=== PATIENT | female | born 1970 | race Caucasian/White ===

== ENCOUNTER 2020-07-19 20:27 | Inpatient (IN) ==
--- NOTE | 2020-07-19 22:10 | DR.GENAD ---
HPI Time Seen Time Seen by Provider: 07/19/20 21:59 PCP Primary Care Physician: JEANIE AYALA Complaint/Symptoms Chief Complaint Doctors Comments: flu symptoms x 2 days. Hx of COPD Chief Complaint:: PT AMBULATORY IN ED WITH C/O GENERALIZED PAIN AND MIGRAINE, COUGH AND CHEST PAIN COVID-19 Coronavirus risk:travel/contact w/high risk person: No Has patient experienced Coronavirus symptoms: Yes Coronavirus symptoms experienced: Fever, Coughing and Shortness of Breath Nurses notes reviewed Nurses Notes Review: Yes Source History Provided: Patient Mode of Arrival Mode of Arrival: Ambulatory Timing Onset of Chief Complaint: 07/17/20 Came on: Gradually Duration Duration: Constant How lon Duration: Days Severity Severity: Moderate Modifying Factors Worsens:: exertion, smoking Associated Signs and Symptoms Associated Signs and Symptoms: Headache, cough PMH PMH Past Medical History: No Past Surgical History: Yes Surgical History: Hysterectomy Past Surgical History Comment: SLING AND MESH Family History History of Family Medical Conditions: Yes Family Medical History: [place], Coronary Artery Disease and Hypertension Social History Does patient currently use any type of tobacco product: Yes Have you used tobacco products in the last 12 months: Yes Type of Tobacco Use: Cigarettes Does any household member use tobacco: No Alcohol Use: None Do you use any recreational Drugs:: No Lives With: Spouse Lives Where: Home Travel Risk Coronavirus risk:travel/contact w/high risk person: No Has patient experienced Coronavirus symptoms: Yes Coronavirus symptoms experienced: Fever, Coughing and Shortness of Breath Infectious screening In the last 2 months have you had wt loss of >10#?: NO Have you had fever, night sweats or hemotysis?: No Have you traveled outside the country in the last 6 months?: No Isolation: Droplet ROS Review of Systems Constitutional: Fever and Malaise Eyes: No Symptoms Reported ENTM: Nose Discharge Respiratoy: Non-Productive Cough and Short of Breath Cardiovascular: No Symptoms Reported Gastrointestinal/Abdominal: No Symptoms Reported Genitourinary: No Symptoms Reported Neurological: Headache Musculoskeletal: Muscle Pain Integumentary: No Symptoms Reported Hematologic/Lymphatic: No Symptoms Reported Endocrine: No Symptoms Reported Psychiatric: No Symptoms Reported All Other Systems: Reviewed and Negative PE Vital Signs Vitals: Temperature 99.9 F Pulse Rate [Left Brachial] 129 Pulse Rate 146 Respiratory Rate 22 Blood Pressure [Left Arm] 84/50 Blood Pressure 114/68 O2 Sat by Pulse Oximetry 95 General Limitations: No Limitations General Appearance: Alert and In No Apparent Distress Head Head Exam: Normal Inspection, Atraumatic and Normocephalic Eyes Eye exam: Normal Appearance and EOMI ENT ENT Exam: Normal Exam, Normal Oropharynx and Normal External Ear Exam External Ear Exam: Normal External Inspection Nose Exam: Normal Nose Exam Mouth Exam: Normal Inspection; negative Drooling, Lip Swelling, Tongue Elevation and Tongue Swelling Throat Exam: Normal Inspection Neck Neck Exam: Normal Inspection, Full ROM and Trachea Midline Chest Chest Inspection: Normal Inspection Respiratory Respiratory Exam: Normal Lung Sounds Bilat Respiratory Exam: Bilateral: Wheezing and Lower: Rales Cardiovascular Cardiovascular Exam: Tachycardia Abdominal Exam Abdominal Exam: Normal Inspection Extremities Extremities Exam: Normal Inspection and Full ROM Neurologic Neurological Exam: Alert, Oriented X3, CN II-XII Intact and Normal Gait Skin Skin Exam: Normal Color COURSE Consultation Called: 00:50 ROR Labs Reviewed Result Diagrams: 07/20/20 05:10 07/20/20 05:37 Laboratory: WBC 20.5 X10^3/uL (3.6-10.0) H 07/19/20 22:24 RBC 5.28 X10^6/uL (3.5-5.4) 07/19/20 22:24 Hgb 16.0 g/dL (12.0-16.0) 07/19/20 22:24 Hct 47.0 % (36.0-47.0) 07/19/20 22:24 MCV 89.1 fL (80.0-100.0) 07/19/20 22:24 MCH 30.3 pg (27.0-34.0) 07/19/20 22:24 MCHC 34.0 g/dL (33.0-35.0) 07/19/20 22:24 RDW 13.7 % (11.6-16.5) 07/19/20 22:24 Plt Count 172 X10^3/uL (150.0-450.0) 07/19/20 22:24 Plt Count Comment Adequate (ADEQUATE) 07/19/20 22:24 MPV 9.7 fL (7.4-11.0) 07/19/20 22:24 Neut % (Auto) 93.0 % (42.0-75.0) H 07/19/20 22:24 Lymph % (Auto) 2.9 % (21.0-51.0) L 07/19/20 22:24 [place] % (Auto) 4.0 % (0.0-13.0) 07/19/20 22:24 Eos % (Auto) 0.0 % (0.9-2.9) L 07/19/20 22:24 Baso % (Auto) 0.1 % (0.2-1.0) L 07/19/20 22:24 Neut # (Auto) 19.0 x10^3/uL (2.2-4.8) H 07/19/20 22:24 Lymph # (Auto) 0.6 X10^3/uL (1.3-2.9) L 07/19/20 22:24 [place] # (Auto) 0.8 x10^3/uL (0.3-0.8) 07/19/20 22:24 Eos # (Auto) 0.0 x10^3/uL (0.0-0.2) 07/19/20 22:24 Baso # (Auto) 0.0 X10^3/uL (0.0-0.1) 07/19/20 22:24 Absolute Nucleated RBC 0.0 /100WBC 07/19/20 22:24 Total Counted 100 07/19/20 22:24 Neutrophils % (Manual) 92 % (39-76) H 07/19/20 22:24 Lymphocytes % (Manual) 7 % (13-43) L 07/19/20 22:24 Monocytes % (Manual) 1 % (4-9) L 07/19/20 22:24 Plt Morphology Comment Normal (NORMAL) 07/19/20 22:24 RBC Morphology Normal (NORMAL) 07/19/20 22:24 Sample Site Rbra 07/19/20 22:56 ABG pH 7.500 (7.35-7.45) H 07/19/20 22:56 ABG pCO2 26.0 mmHg (35.0-45.0) L 07/19/20 22:56 ABG pO2 69.0 mmHg (80.0-100.0) L 07/19/20 22:56 ABG HCO3 20.3 mmol/L (22-26) L 07/19/20 22:56 ABG O2 Saturation 95.0 % (90-100) 07/19/20 22:56 ABG Base Excess -1.6 mmol/L (-2.0-2.0) 07/19/20 22:56 Howard Test Na 07/19/20 22:56 A-a Gradient 48.0 mmHg 07/19/20 22:56 FiO2 21.0 07/19/20 22:56 Blood Gas Comments Abraham abg well-mtf 07/19/20 22:56 Sodium 137 mmol/L (136-145) 07/19/20 22:24 Corrected Sodium 138 mmol/L (136-145) 07/19/20 22:24 Potassium 4.1 mmol/L (3.5-5.1) 07/19/20 22:24 Chloride 100 mmol/L (98-107) 07/19/20 22:24 Carbon Dioxide 26.3 mmol/L (21-32) 07/19/20 22:24 BUN 19 mg/dL (7-18) H 07/19/20 22:24 Creatinine 1.77 mg/dL (0.55-1.02) H 07/19/20 22:24 Est GFR (MDRD) Af Amer 39 (>60) L 07/19/20 22:24 Est GFR (MDRD) Non-Af 32 (>60) L 07/19/20 22:24 Glucose 150 mg/dL (65-99) H 07/19/20 22:24 Calcium 9.0 mg/dL (8.5-10.1) 07/19/20 22:24 Corrected Calcium 9.7 mg/dL (8.5-10.1) 07/19/20 22:24 Ferritin 370 ng/mL (8-252) H 07/19/20 22:24 Total Bilirubin 1.10 mg/dL (0.2-1.0) H 07/19/20 22:24 AST 10 Units/L (15-37) L 07/19/20 22:24 ALT 12 Units/L (12-78) 07/19/20 22:24 Alkaline Phosphatase 85 Units/L (46-116) 07/19/20 22:24 Troponin I < 0.04 ng/mL (0-1.5) 07/19/20 22:24 C-Reactive Protein 371.60 mg/L (0-3.0) H 07/19/20 22:24 Total Protein 7.1 g/dL (6.4-8.2) 07/19/20 22:24 Albumin 3.1 g/dL (3.4-5.0) L 07/19/20 22:24 Globulin 4.0 g/dL (2.5-4.5) 07/19/20 22:24 Albumin/Globulin Ratio 0.8 Ratio (1.1-2.1) L 07/19/20 22:24 SARS-CoV-2 (PCR) Negative (NEGATIVE) 07/19/20 23:36 Opioid Opioid Risk Tool Age ([place] box if 16-45): No History of Preadolescent Sexual Abuse: No Total: 0 Total Score Risk Category: Low Risk Copyright: Marco Antonio NEGRO predicting aberrant behaviors Diagnosis Discharge Problem: Pneumonia Qualifiers: Pneumonia type: due to unspecified organism Laterality: bilateral Lung location: lower lobe of lung Qualified Code(s): J18.9 - Pneumonia, unspecified organism
[2020-07-19] MEDS ORDERED: XOPENEX 1.25 MG/3 ML NEBULE NEB ONE ×2 (22:14→22:48)
[2020-07-19 22:29] LABS: BASOPHILS % (AUTO) 0.1 % (0.2-1.0); LYMPHOCYTES # (AUTO) 0.6 X10^3/uL (1.3-2.9); LYMPHOCYTES % (AUTO) 2.9 % (21.0-51.0); MEAN CORPUSCULAR HEMOGLOBIN 30.3 pg (27.0-34.0); MEAN CORPUSCULAR VOLUME 89.1 fL (80.0-100.0); MEAN PLATELET VOLUME 9.7 fL (7.4-11.0); MONOCYTES # (AUTO) 0.8 x10^3/uL (0.3-0.8); PLATELET COUNT 172 X10^3/uL (150.0-450.0); RED BLOOD COUNT 5.28 X10^6/uL (3.5-5.4); RED CELL DISTRIBUTION WIDTH 13.7 % (11.6-16.5); WHITE BLOOD COUNT 20.5 X10^3/uL (3.6-10.0)
[2020-07-19] MEDS ORDERED: NS 1000 ML 1,000 ML ONE (22:37)
[2020-07-19 22:48] LABS: ALANINE AMINOTRANSFERASE 12 Units/L (12-78); ALBUMIN 3.1 g/dL (3.4-5.0); ALKALINE PHOSPHATASE 85 Units/L (46-116); ASPARTATE AMINO TRANSFERASE 10 Units/L (15-37); CARBON DIOXIDE 26.3 mmol/L (21-32); CHLORIDE 100 mmol/L (98-107); COR CA(FOR HYPOALB) 9.7 mg/dL (8.5-10.1); COR NA(FOR HYPERGLY) 138 mmol/L (136-145); CREATININE 1.77 mg/dL (0.55-1.02); SODIUM 137 mmol/L (136-145); TOTAL PROTEIN 7.1 g/dL (6.4-8.2); eGFR NON BLACK RACES 32 (>60)
--- NOTE | 2020-07-19 22:49 | RAD ---
STUDY: CHEST, 1 VIEWCOMPARISON: NoneHISTORY: PT C/O MIGRAINE, COUGH, AND CHEST PAINFINDINGS:Alveolar airspace disease is seen in the right upper lung zone and right lower lung zone. The airspace disease in the right upper lung zone has cystic changes and may be chronic in etiology. Left lower lobe discoid atelectasis is noted. Remaining left lung is clear. Cardiomediastinal contour is normal. No pleural effusion or pneumothorax is seen. Emphysema is suggested.IMPRESSION:1. Alveolar airspace disease in the right upper lung zone appears chronic with findings suggesting honeycombing with fibrosis.2. There is airspace disease in the right lower lung zone. This could represent acute or chronic airspace disease. Please note that there are no prior studies available for comparison to assess the stability and chronicity of these findings. Follow-up may be obtained as clinically indicated.Electronically signed by: Mukund Moreno (Jul 19, 2020 22:47:10)
[2020-07-19 22:59] LABS: PLATELET MORPHOLOGY COMMENT NORMAL (NORMAL)
[2020-07-19 22:59] LABS: ABG BASE EXCESS -1.6 mmol/L (-2.0-2.0); ABG HCO3 20.3 mmol/L (22-26)
[2020-07-19] MEDS ORDERED: NS 1000 ML 1,000 ML IV SCH (23:00)
[2020-07-19 23:28] LABS: TROPONIN I < 0.04 ng/mL (0-1.5)
[2020-07-19 23:33] LABS: BLOOD UREA NITROGEN 19 mg/dL (7-18)
[2020-07-19] MEDS ORDERED: TORADOL 30 MG VIAL IVP ONE (23:39)
[2020-07-19] MEDS ORDERED: TORADOL 30 MG VIAL ONE (23:49)
[2020-07-20] MEDS ORDERED: TUSSIONEX PENNKINETIC SUSP PO PRN (01:27)
[2020-07-20] MEDS ORDERED: NS 1000 ML 1,000 ML IV ONE ×2 (01:50→02:42)
[2020-07-20] MEDS ORDERED: NS 1000 ML 1,000 ML ONE (02:32)
[2020-07-20] MEDS ORDERED: ROCEPHIN 1 GRAM IV PREMIX 1 G/50 ML IV.SOLN. IV ONE (02:44)
[2020-07-20] MEDS: NS 1/2 1000 ML IV 1,000 ML IV SCH ×2 (02:45→05:00)
[2020-07-20] MEDS ORDERED: ROCEPHIN 1 GRAM IV PREMIX 1 G/50 ML IV.SOLN. IV SCH (03:00)
[2020-07-20 03:18] VITALS: BMI 19.4
[2020-07-20] MEDS: VIBRAMYCIN 100 MG in NS 100 ML IV + SPIKE MINIBAG* 100 ML IV SCH ×3 (03:19→20:22)
[2020-07-20] MEDS ORDERED: NS 1/2 1000 ML IV 1,000 ML IV ONE (04:08)
[2020-07-20 06:14] LABS: BASOPHILS % (AUTO) 0.4 % (0.2-1.0); HEMATOCRIT 43.8 % (36.0-47.0); HEMOGLOBIN 14.8 g/dL (12.0-16.0); LYMPHOCYTES # (AUTO) 0.6 X10^3/uL (1.3-2.9); LYMPHOCYTES % (AUTO) 8.5 % (21.0-51.0); MEAN CORPUSCULAR HEMOGLOBIN 30.4 pg (27.0-34.0); MEAN CORPUSCULAR HGB CONC 33.8 g/dL (33.0-35.0); MEAN PLATELET VOLUME 10.6 fL (7.4-11.0); MONOCYTES # (AUTO) 0.4 x10^3/uL (0.3-0.8); MONOCYTES % (AUTO) 5.1 % (0.0-13.0); NEUTROPHILS # (AUTO) 6.2 x10^3/uL (2.2-4.8); PLATELET COUNT 122 X10^3/uL (150.0-450.0); RED BLOOD COUNT 4.86 X10^6/uL (3.5-5.4); RED CELL DISTRIBUTION WIDTH 13.8 % (11.6-16.5); WHITE BLOOD COUNT 7.2 X10^3/uL (3.6-10.0)
[2020-07-20 06:24] LABS: LACTIC ACID 3.3 mmol/L (0.4-2.0)
[2020-07-20 06:31] LABS: ALANINE AMINOTRANSFERASE 9 Units/L (12-78); ALBUMIN 2.3 g/dL (3.4-5.0); ALKALINE PHOSPHATASE 65 Units/L (46-116); ASPARTATE AMINO TRANSFERASE 8 Units/L (15-37); BLOOD UREA NITROGEN 24 mg/dL (7-18); CALCIUM 7.9 mg/dL (8.5-10.1); CHLORIDE 104 mmol/L (98-107); CKMB % 2.6 % (<4); COR CA(FOR HYPOALB) 9.3 mg/dL (8.5-10.1); CREATINE KINASE 39 Units/L (26-192); CREATINE KINASE MB < 1.0 ng/mL (0-4.0); CREATININE 2.22 mg/dL (0.55-1.02); SODIUM 139 mmol/L (136-145); TOTAL PROTEIN 5.6 g/dL (6.4-8.2); TROPONIN I < 0.02 ng/mL (0-1.5); eGFR NON BLACK RACES 25 (>60)
[2020-07-20 06:38] LABS: BAND NEUTROPHILS % 5 % (0-10); PLATELET MORPHOLOGY COMMENT NORMAL (NORMAL)
--- NOTE | 2020-07-20 08:16 | RAD ---
HISTORYPNEUMONIASTUDYCHEST, 1 VIEWCOMPARISONChest radiograph dated July 19, 2020FINDINGSThe trachea is midline. The cardiac silhouette is stable. Background changes of COPD persist with worsening of airspace disease and parenchymal disease seen throughout the right upper lobe with intervening cavitary foci. This finding can be seen with an aggressive infection/pneumonia. Acute tuberculosis is not completely excluded. This needs medical context.. No pneumothorax or other cardiopulmonary changes are identified. The bony thorax is unremarkable.IMPRESSIONWorsening and extensive airspace disease/pneumonia throughout the right upper lobe, as discussed aboveElectronically signed by: JACKIE CAVANAUGH III (Jul 20, 2020 08:14:38)
[2020-07-20] MEDS: ROBITUSSIN DM PO SCH ×4 (09:37→20:21)
[2020-07-20] MEDS: VSL#3 PO SCH (09:38)
[2020-07-20] MEDS: XOPENEX 1.25 MG/3 ML NEBULE NEB SCH ×4 (09:39→21:22)
[2020-07-20] MEDS ORDERED: APLISOL ID ONE ×2 (09:53→15:26)
[2020-07-20] MEDS ORDERED: CANDIDA ALBICANS SKIN TEST ID ONE ×2 (09:53→15:28)
[2020-07-20] MEDS ORDERED: LR 1000 ML IV 1,000 ML IV ONE (10:35)
[2020-07-20] MEDS ORDERED: LEXAPRO ONE (12:39)
[2020-07-20] MEDS: LR 1000 ML IV 1,000 ML IV SCH ×2 (12:42→18:17)
[2020-07-20] MEDS: LEXAPRO PO SCH (12:43)
[2020-07-20] MEDS: MERREM VIAL 500 MG in NS 100 ML IV + SPIKE MINIBAG* 100 ML IV SCH ×3 (12:43→21:30)
[2020-07-20] MEDS: NICOTINE PATCH TD SCH (12:45)
[2020-07-20] MEDS ORDERED: SALINE 3% 15 ML NEB TX NEB ONE (13:22)
--- NOTE | 2020-07-20 15:47 | CT ---
HISTORYPNEUMONIA, PAIN OVER RIGHT EYE[Concern for sinusitis]. [Headache].Noncontrast CT examination of the paranasal sinuses.Technique: Multiple axial images of the paranasal sinuses were obtained without contrast.Findings:There is no evidence for acute sinusitis or aggressive sinus disease. There is no evidence for sinus fungal colonization. No concerning paranasal sinus mucosal mass lesion is seen. [The remaining maxillary sinuses, anterior and posterior ethmoid air cells, sphenoid sinuses, and frontal sinuses demonstrate no evidence for mucosal inflammatory disease]. The nasal septum is [midline]. The ostiomeatal unit on the right and left are [widely patent without inflammatory change]. The left and right frontal recess are [unremarkable in their appearance]. Visualized portions of the posterior fossa and intracranial structures are unremarkable as well.IMPRESSION:Essentially negative CT examination of the paranasal sinuses. No evidence for acute sinusitis.Electronically signed by: JACKIE CAVANAUGH III (Jul 20, 2020 15:45:57)
[2020-07-20] MEDS: TORADOL 15 MG VIAL IVP PRN (16:19)
[2020-07-20] MEDS: XANAX PO PRN (20:45)
[2020-07-21] MEDS: LR 1000 ML IV 1,000 ML IV SCH ×6 (02:35→19:48)
[2020-07-21] MEDS: XOPENEX 1.25 MG/3 ML NEBULE NEB SCH ×5 (06:03→20:20)
[2020-07-21] MEDS: MERREM VIAL 500 MG in NS 100 ML IV + SPIKE MINIBAG* 100 ML IV SCH ×3 (06:26→21:03)
[2020-07-21 06:31] LABS: ALANINE AMINOTRANSFERASE 11 Units/L (12-78); ALBUMIN 2.1 g/dL (3.4-5.0); ALKALINE PHOSPHATASE 41 Units/L (46-116); ASPARTATE AMINO TRANSFERASE 15 Units/L (15-37); BASOPHILS % (AUTO) 0.1 % (0.2-1.0); BLOOD UREA NITROGEN 30 mg/dL (7-18); CHLORIDE 106 mmol/L (98-107); COR CA(FOR HYPOALB) 9.5 mg/dL (8.5-10.1); CREATININE 1.59 mg/dL (0.55-1.02); EOSINOPHILS % (AUTO) 0.8 % (0.9-2.9); HEMATOCRIT 42.3 % (36.0-47.0); HEMOGLOBIN 14.3 g/dL (12.0-16.0); LYMPHOCYTES # (AUTO) 0.4 X10^3/uL (1.3-2.9); LYMPHOCYTES % (AUTO) 8.5 % (21.0-51.0); MEAN CORPUSCULAR HEMOGLOBIN 30.4 pg (27.0-34.0); MEAN CORPUSCULAR HGB CONC 33.8 g/dL (33.0-35.0); MEAN CORPUSCULAR VOLUME 89.8 fL (80.0-100.0); MEAN PLATELET VOLUME 10.7 fL (7.4-11.0); MONOCYTES # (AUTO) 0.3 x10^3/uL (0.3-0.8); MONOCYTES % (AUTO) 4.9 % (0.0-13.0); NEUTROPHILS # (AUTO) 4.5 x10^3/uL (2.2-4.8); NEUTROPHILS % (AUTO) 85.7 % (42.0-75.0); PLATELET COUNT 135 X10^3/uL (150.0-450.0); RED BLOOD COUNT 4.71 X10^6/uL (3.5-5.4); SODIUM 142 mmol/L (136-145); TOTAL PROTEIN 5.6 g/dL (6.4-8.2); WHITE BLOOD COUNT 5.2 X10^3/uL (3.6-10.0); eGFR NON BLACK RACES 37 (>60)
[2020-07-21 06:39] LABS: CARBON DIOXIDE 18.5 mmol/L (21-32)
[2020-07-21 06:51] LABS: BAND NEUTROPHILS % 3 % (0-10); PLATELET MORPHOLOGY COMMENT NORMAL (NORMAL)
[2020-07-21] MEDS ORDERED: LEXAPRO ONE (08:02)
[2020-07-21] MEDS: LEXAPRO PO SCH (08:21)
[2020-07-21] MEDS: VSL#3 PO SCH (08:28)
[2020-07-21] MEDS: ROBITUSSIN DM PO SCH ×4 (08:28→20:50)
[2020-07-21] MEDS: VIBRAMYCIN 100 MG in NS 100 ML IV + SPIKE MINIBAG* 100 ML IV SCH ×2 (08:29→20:50)
[2020-07-21] MEDS: NICOTINE PATCH TD SCH (08:29)
[2020-07-21] MEDS: XANAX PO PRN ×2 (08:30→21:11)
[2020-07-21] MEDS ORDERED: LR 1000 ML IV 1,000 ML IV ONE (11:31)
[2020-07-21] MEDS: TYLENOL 325 MG TAB PO PRN (12:00)
[2020-07-21] MEDS ORDERED: XOPENEX 1.25 MG/3 ML NEBULE NEB SCH (13:00)
[2020-07-21] MEDS: TORADOL 15 MG VIAL IVP PRN (21:11)
[2020-07-22] MEDS: LR 1000 ML IV 1,000 ML IV SCH ×4 (01:39→22:41)
[2020-07-22] MEDS: XOPENEX 1.25 MG/3 ML NEBULE NEB SCH ×5 (03:45→20:52)
[2020-07-22] MEDS: TORADOL 15 MG VIAL IVP PRN ×2 (03:58→11:50)
[2020-07-22] MEDS: MERREM VIAL 500 MG in NS 100 ML IV + SPIKE MINIBAG* 100 ML IV SCH ×3 (05:27→21:17)
[2020-07-22 06:33] LABS: BASOPHILS % (AUTO) 0.2 % (0.2-1.0); EOSINOPHILS # (AUTO) 0.1 x10^3/uL (0.0-0.2); EOSINOPHILS % (AUTO) 1.3 % (0.9-2.9); HEMATOCRIT 38.5 % (36.0-47.0); HEMOGLOBIN 13.1 g/dL (12.0-16.0); LYMPHOCYTES # (AUTO) 0.7 X10^3/uL (1.3-2.9); LYMPHOCYTES % (AUTO) 7.9 % (21.0-51.0); MEAN CORPUSCULAR HEMOGLOBIN 30.1 pg (27.0-34.0); MEAN CORPUSCULAR HGB CONC 34.2 g/dL (33.0-35.0); MEAN PLATELET VOLUME 10.5 fL (7.4-11.0); MONOCYTES # (AUTO) 0.2 x10^3/uL (0.3-0.8); MONOCYTES % (AUTO) 2.3 % (0.0-13.0); NEUTROPHILS # (AUTO) 8.3 x10^3/uL (2.2-4.8); NEUTROPHILS % (AUTO) 88.3 % (42.0-75.0); PLATELET COUNT 197 X10^3/uL (150.0-450.0); RED BLOOD COUNT 4.37 X10^6/uL (3.5-5.4); RED CELL DISTRIBUTION WIDTH 13.9 % (11.6-16.5); WHITE BLOOD COUNT 9.5 X10^3/uL (3.6-10.0)
[2020-07-22 06:47] LABS: ALANINE AMINOTRANSFERASE 14 Units/L (12-78); ALBUMIN 1.8 g/dL (3.4-5.0); ALKALINE PHOSPHATASE 59 Units/L (46-116); ASPARTATE AMINO TRANSFERASE 24 Units/L (15-37); BLOOD UREA NITROGEN 21 mg/dL (7-18); CALCIUM 8.2 mg/dL (8.5-10.1); CARBON DIOXIDE 23.3 mmol/L (21-32); CHLORIDE 108 mmol/L (98-107); CREATININE 1.13 mg/dL (0.55-1.02); SODIUM 142 mmol/L (136-145); TOTAL PROTEIN 5.6 g/dL (6.4-8.2); eGFR NON BLACK RACES 54 (>60)
[2020-07-22 07:04] LABS: BAND NEUTROPHILS % 4 % (0-10); PLATELET MORPHOLOGY COMMENT NORMAL (NORMAL)
[2020-07-22] MEDS ORDERED: LEXAPRO ONE (07:52)
[2020-07-22] MEDS: LEXAPRO PO SCH (08:00)
[2020-07-22] MEDS: XANAX PO PRN (08:00)
[2020-07-22] MEDS: ROBITUSSIN DM PO SCH (08:00)
[2020-07-22] MEDS: NICOTINE PATCH TD SCH (08:00)
[2020-07-22] MEDS: VSL#3 PO SCH (08:00)
[2020-07-22] MEDS: VIBRAMYCIN 100 MG in NS 100 ML IV + SPIKE MINIBAG* 100 ML IV SCH ×2 (08:42→20:25)
[2020-07-22] MEDS ORDERED: VSL#3 PO SCH (10:45)
[2020-07-22] MEDS ORDERED: PHENERGAN INJ 25 MG IM ONE (11:29)
[2020-07-22] MEDS: PHENERGAN INJ 25 MG IM PRN (11:38)
[2020-07-22] MEDS ORDERED: ATIVAN INJ 2 MG VIAL ONE (12:35)
[2020-07-22] MEDS ORDERED: ATIVAN INJ 2 MG VIAL IVP ONE (12:35)
[2020-07-22] MEDS ORDERED: QUELICIN (OR ANECTINE) ONE (12:40)
--- NOTE | 2020-07-22 13:29 | RAD ---
HISTORYCheck ET tube placementSTUDYCHEST x-ray, 1 VIEWCOMPARISONX-ray 07/22/2020FINDINGSEndotracheal tube terminates 4.4 cm above the sunil. Lungs appear hyperinflated suggesting COPD. Persistent infiltrates in the right lung and left lung base may be slightly improved. Differences could be due to technical factors, though.IMPRESSIONEndotracheal tube terminates 4.4 cm above the sunil.Electronically signed by: Marcial Carter (Jul 22, 2020 13:26:07)
[2020-07-22] MEDS ORDERED: NORCURON INJ 10 MG VIAL ONE ×3 (13:34→19:56)
[2020-07-22] MEDS: VERSED 100 MG in NS 100 ML IV 80 ML IV PRN ×3 (13:57→21:45)
[2020-07-22] MEDS ORDERED: NS 50 ML IV 50 ML IV ONE ×2 (14:44→20:42)
[2020-07-22] MEDS ORDERED: LR 1000 ML IV 1,000 ML IV ONE (14:47)
[2020-07-22 14:55] LABS: HEMATOCRIT 38.6 % (36.0-47.0); HEMOGLOBIN 12.9 g/dL (12.0-16.0)
--- NOTE | 2020-07-22 14:56 | RAD ---
HISTORYCODED, SOBSTUDYCHEST, 1 [id number]/27/2020FINDINGSWorsening of extensive parenchymal opacities in the right lung, predo minantly in the mid and upper lung zones. New developing parenchymal opacities in the left lung base. No appreciable pleural fluid. Heart size normal. No significant change in appearance of the bony str uctures.IMPRESSIONWorsening parenchymal opacities in the right lung with new developing opacities in the left lung base.Electronically signed by: Troy Hess (Jul 22, 2020 14:55:21)
[2020-07-22] MEDS: LR 1000 ML IV 1,000 ML IV ONE (15:00)
[2020-07-22] MEDS ORDERED: QUELICIN (OR ANECTINE) IVP ONE (15:29)
[2020-07-22] MEDS ORDERED: NORCURON INJ 10 MG VIAL 50 MG in NS 50 ML IV 50 ML IV PRN ×2 (15:40→21:19)
[2020-07-22] MEDS ORDERED: CLEOCIN 600 MG IV PREMIX 600 MG/50 ML BAG IV ONE (15:58)
[2020-07-22] MEDS: NORCURON INJ 10 MG VIAL 50 MG in NS 50 ML IV 50 ML IV PRN ×2 (15:58→21:00)
[2020-07-22] MEDS ORDERED: NORCURON INJ 10 MG VIAL IVP NR (16:00)
[2020-07-22] MEDS ORDERED: NS 1000 ML 1,000 ML IV ONE (16:01)
[2020-07-22 17:01] LABS: BILIRUBIN,URINE NEGATIVE (NEGATIVE); BLOOD/HEMOGLOBIN,URINE 2+ (NEGATIVE); GLUCOSE, URINE NEGATIVE (NEGATIVE); KETONES,URINE 2+ (NEGATIVE); LEUKOCYTE ESTERASE ,URINE NEGATIVE (NEGATIVE); NITRITES,URINE NEGATIVE (NEGATIVE); PROTEIN,URINE 3+ (NEGATIVE); UROBILINOGEN,URINE NORMAL (NORMAL)
[2020-07-22 17:10] LABS: APPEARANCE,URINE HAZY (CLEAR); BACTERIA,URINE TRACE /HPF (NEGATIVE); COLOR,URINE YELLOW (YELLOW); RENAL EPITHELIAL CELLS,URINE FEW /HPF (NEGATIVE); SQUAMOUS EPITHELIAL CELL,UR FEW /HPF (NEGATIVE)
[2020-07-22 17:11] LABS: COARSE GRANULAR CASTS,URINE FEW /HPF (NEGATIVE); MUCUS,URINE FEW /HPF (NEGATIVE)
[2020-07-22] MEDS: PROTONIX INJ 40 MG VIAL IVP SCH ×2 (18:35→20:25)
[2020-07-22] MEDS: CYTOTEC PO SCH ×2 (18:59→20:25)
[2020-07-22 19:13] LABS: ABG BASE EXCESS -0.4 mmol/L (-2.0-2.0); ABG HCO3 22.3 mmol/L (22-26)
[2020-07-22 20:22] LABS: HEMATOCRIT 41.7 % (36.0-47.0)
[2020-07-22] MEDS ORDERED: ZEMURON 100 MG VIAL 500 MG in NS 500 ML IV 450 ML IV SCH (22:00)
[2020-07-22] MEDS: LACRI-LUBE S.O.P. AFFEYE SCH (22:00)
[2020-07-22] MEDS: CLEOCIN 300 MG IV PREMIX 300 MG/50 ML BAG IV SCH (22:41)
[2020-07-23] MEDS: TORADOL 15 MG VIAL IVP PRN ×2 (01:59→14:42)
[2020-07-23] MEDS: TYLENOL 325 MG TAB PO PRN ×2 (02:00→08:34)
[2020-07-23 02:49] LABS: BASOPHILS % (AUTO) 0.1 % (0.2-1.0); EOSINOPHILS % (AUTO) 0.1 % (0.9-2.9); HEMATOCRIT 35.5 % (36.0-47.0); HEMOGLOBIN 11.9 g/dL (12.0-16.0); LYMPHOCYTES # (AUTO) 0.8 X10^3/uL (1.3-2.9); LYMPHOCYTES % (AUTO) 7.3 % (21.0-51.0); MEAN CORPUSCULAR HEMOGLOBIN 29.6 pg (27.0-34.0); MEAN CORPUSCULAR HGB CONC 33.4 g/dL (33.0-35.0); MEAN CORPUSCULAR VOLUME 88.3 fL (80.0-100.0); MEAN PLATELET VOLUME 10.5 fL (7.4-11.0); MONOCYTES # (AUTO) 0.8 x10^3/uL (0.3-0.8); NEUTROPHILS # (AUTO) 9.6 x10^3/uL (2.2-4.8); NEUTROPHILS % (AUTO) 85.5 % (42.0-75.0); PLATELET COUNT 213 X10^3/uL (150.0-450.0); RED BLOOD COUNT 4.02 X10^6/uL (3.5-5.4); RED CELL DISTRIBUTION WIDTH 14.2 % (11.6-16.5); WHITE BLOOD COUNT 11.2 X10^3/uL (3.6-10.0)
[2020-07-23 02:57] LABS: ALANINE AMINOTRANSFERASE 63 Units/L (12-78); ALBUMIN 1.5 g/dL (3.4-5.0); ALKALINE PHOSPHATASE 47 Units/L (46-116); ASPARTATE AMINO TRANSFERASE 116 Units/L (15-37); BLOOD UREA NITROGEN 32 mg/dL (7-18); CHLORIDE 110 mmol/L (98-107); CREATININE 1.27 mg/dL (0.55-1.02); SODIUM 146 mmol/L (136-145); TOTAL PROTEIN 4.9 g/dL (6.4-8.2); eGFR NON BLACK RACES 47 (>60)
[2020-07-23 03:02] LABS: PLATELET MORPHOLOGY COMMENT NORMAL (NORMAL)
--- NOTE | 2020-07-23 04:25 | RAD ---
HISTORYPneumonia; NG Tube Placement Relevant Clinical InformationSTUDYKUBCOMPARISONChest radiograph 07/22/2020FINDINGSNasogastric tube terminates in the expected location of the stomach. Right upper lobe patchy consolidation is partially visualized on this exam. Bowel gas pattern is nonspecific with air-filled colon noted.IMPRESSIONNGT as described.Electronically signed by: Bernie Evans (Jul 23, 2020 04:23:08)
[2020-07-23] MEDS: LR 1000 ML IV 1,000 ML IV SCH ×3 (05:24→11:00)
[2020-07-23] MEDS: MERREM VIAL 500 MG in NS 100 ML IV + SPIKE MINIBAG* 100 ML IV SCH (05:25)
[2020-07-23 05:45] LABS: ABG BASE EXCESS -1.1 mmol/L (-2.0-2.0); ABG HCO3 23.5 mmol/L (22-26)
[2020-07-23 05:46] LABS: ABG ALLEN TEST POS
[2020-07-23] MEDS: CLEOCIN 300 MG IV PREMIX 300 MG/50 ML BAG IV SCH (06:08)
--- NOTE | 2020-07-23 06:35 | RAD ---
HISTORYPNEUMONIASTUDYCHEST, 1 [id number]/29/2020TECHNIQUEAP view of the chestFINDINGSET tube in good position. Cardiac silhouette is silhouetted on the right side. NG tube terminates in the stomach with the side port at the GE junction. Complete opacification of the right hemithorax with ipsilateral shift suspected. Patient rotation limits evaluation. Patchy left lower lobe opacities similar to prior. No pneumothorax.IMPRESSIONComplete opacification of the right lung with likely an atelectatic component given ipsilateral shift. Patient rotation limits evaluation.Electronically signed by: Nhan Rojas (Jul 23, 2020 06:33:08)
[2020-07-23] MEDS ORDERED: VERSED ONE ×3 (08:10→18:37)
[2020-07-23] MEDS ORDERED: NS 100 ML IV 100 ML IV ONE ×2 (08:11→18:37)
[2020-07-23] MEDS: VERSED 100 MG in NS 100 ML IV 80 ML IV PRN ×2 (08:20→18:43)
[2020-07-23] MEDS: PROTONIX INJ 40 MG VIAL IVP SCH ×2 (08:23→21:53)
[2020-07-23] MEDS: VIBRAMYCIN 100 MG in NS 100 ML IV + SPIKE MINIBAG* 100 ML IV SCH (08:30)
[2020-07-23] MEDS: CYTOTEC PO SCH (08:33)
[2020-07-23] MEDS: LACRI-LUBE S.O.P. AFFEYE SCH ×2 (08:58→21:26)
[2020-07-23] MEDS: NICOTINE PATCH TD SCH (08:59)
[2020-07-23] MEDS: NS 1000 ML 1,000 ML IV SCH ×2 (09:19→10:22)
[2020-07-23] MEDS ORDERED: POTASSIUM CHL 60 MEQ/NS 0.45% 500 ML IV PRN (09:21)
[2020-07-23] MEDS ORDERED: KLOR-CON PO PRN (09:21)
[2020-07-23] MEDS ORDERED: MICRO K EXTEN CAP 10 MEQ PO PRN (09:21)
[2020-07-23] MEDS ORDERED: POTASSIUM CHL 40 MEQ/NS 0.45% 500 ML IV PRN (09:21)
[2020-07-23] MEDS ORDERED: K-DUR TAB 20 MEQ PO PRN (09:21)
[2020-07-23] MEDS ORDERED: POTASSIUM CHLORIDE LIQ 20 MEQ UDC PO PRN (09:21)
[2020-07-23] MEDS: XOPENEX 1.25 MG/3 ML NEBULE NEB SCH ×4 (09:50→21:05)
[2020-07-23] MEDS ORDERED: PHARMACY CONSULT - VANCOMYCIN XX SCH (10:00)
[2020-07-23 10:20] LABS: MYCOPLASMA PNEUMONIAE IGM AB NEGATIVE (NEGATIVE)
[2020-07-23] MEDS: MAGNESIUM SULFATE 1 GRAM/100 mL PREMIX 1 GM/100 ML BAG IV PRN ×2 (10:34→15:50)
[2020-07-23] MEDS: LOVENOX INJ 30 MG SYR SC SCH ×2 (10:36→21:53)
[2020-07-23] MEDS ORDERED: LR 1000 ML IV 1,000 ML IV ONE (10:58)
[2020-07-23] MEDS ORDERED: VANCOMYCIN HCL 1 G in D5W 250 ML IV 250 ML IV SCH (11:00)
[2020-07-23 11:17] LABS: STREP A BY PCR NOT DETECTED (NOT DETECT)
--- NOTE | 2020-07-23 11:51 | CT ---
CTA CHESTCLINICAL INDICATION: PneumoniaPROCEDURE: Non gated axial images of the chest were obtained with intravenous contrast according to pulmonary embolism protocol. MIPS were reconstructed Dose reduction techniques including Automated Exposure Control (AEC) and adjustment of mA and kV were utlized.COMPARISON:NoneFINDINGS:No evidence of a pulmonary embolism to the level of the segmental pulmonary arteries.The heart is normal in size . No pericardial effusion . No suspicious mediastinal or axillary lymph nodes. There is complete obstruction of the right main bronchus by what is likely mucus plugging although external mass cannot be excluded. Complete atelectasis of the right lung. Patient is intubated with endotracheal tube terminating 4.5 cm above the sunil. Emphysema of the left lung is present as well as some patchy ground-glass suggestive of multifocal infection.Limited images of the upper abdomen are unremarkable.No aggressive osseous lesions.IMPRESSION:1. Complete obstruction of the right main bronchus with total atelectasis and consolidation of the right lung. Strongly recommend bronchoscopy. Superimposed multifocal infection is not excluded.Electronically signed by: ENRIQUE LEVINE (Jul 23, 2020 11:49:18)
[2020-07-23] MEDS: ZOSYN VIAL 4.5 GRAMS 4.5 G in NS 100 ML IV + SPIKE MINIBAG* 100 ML IV SCH ×3 (12:00→22:00)
[2020-07-23] MEDS ORDERED: MUCOMYST (RESPIRATORY USE ONLY) ONE (12:27)
[2020-07-23] MEDS: MUCOMYST (RESPIRATORY USE ONLY) NEB SCH ×3 (13:00→21:04)
[2020-07-23] MEDS ORDERED: VANCOMYCIN IV *PREMIX 1 G/200 ML BAG 1 G/200 ML PIGGYBACK IV SCH (14:00)
--- NOTE | 2020-07-23 15:50 | RAD ---
HISTORYCENTRAL LINE PLACEMENTSTUDYCHEST, 1 VIEWCOMPARISONNo MR 2019FINDINGSThe trachea is midline. The cardiac silhouette is stable as is an ETT. These right-sided central line with tip overlying the distal SVC.. The lungs demonstrate improved aeration of the right lung with persistent airspace opacities throughout the right upper and lower lobes.. No pneumothorax is seen. The bony thorax is unremarkable.IMPRESSIONRight-sided central line placement as above with improved aeration of the right lung.Electronically signed by: IHSAN GOMEZ (Jul 23, 2020 15:47:57)
[2020-07-23] MEDS: ZITHROMAX INJ 500 MG VIAL 500 MG in D5W 250 ML IV 250 ML IV SCH (16:29)
[2020-07-23] MEDS: K-RIDER 10 MEQ/NS 100 ML 10 MEQ/100 ML BAG IV PRN ×2 (16:33→18:25)
[2020-07-23 16:56] LABS: ABG BASE EXCESS -3.8 mmol/L (-2.0-2.0); ABG HCO3 22.2 mmol/L (22-26)
[2020-07-23] MEDS ORDERED: ZYVOX 600MG IV 600 MG/300 ML BAG IV SCH (17:00)
[2020-07-23] MEDS: SOLU-Medrol 125 MG VIAL IVP SCH ×2 (18:00→21:11)
[2020-07-23] MEDS: NORCURON INJ 10 MG VIAL 50 MG in NS 50 ML IV 50 ML IV PRN (18:48)
[2020-07-23] MEDS: PULMICORT NEB TX 0.5 MG NEB SCH (21:04)
[2020-07-23] MEDS: BROVANA IN SCH (21:18)
[2020-07-23] MEDS: ZYVOX 600MG IV 600 MG/300 ML BAG IV SCH (21:26)
[2020-07-23] MEDS ORDERED: NS 500 ML IV 500 ML IV ONE (22:37)
[2020-07-24] MEDS: LR 1000 ML IV 1,000 ML IV SCH
[2020-07-24] MEDS: MUCOMYST (RESPIRATORY USE ONLY) NEB SCH ×4 (00:26→13:12)
[2020-07-24] MEDS: VERSED 100 MG in NS 100 ML IV 80 ML IV PRN ×2 (05:00→14:49)
[2020-07-24 05:51] LABS: ABG BASE EXCESS 2.4 mmol/L (-2.0-2.0); ABG HCO3 26.4 mmol/L (22-26)
[2020-07-24 05:52] LABS: ABG ALLEN TEST POS
--- NOTE | 2020-07-24 06:19 | RAD ---
HISTORYPNEUMONIA, RESP DISTRESSSTUDYCHEST, 1 VIEWCOMPARISONOne day prior.TECHNIQUETwo images AP chestFINDINGSET tube in good position. NG tube in good position. Right subclavian central line in good position. Cardiac and mediastinal contours appear stable. Right upper lobe consolidation is stable. Other airspace disease in both lungs appear stable. No large pleural effusion. No pneumothorax.IMPRESSIONNo significant change.Electronically signed by: Nhan Rojas (Jul 24, 2020 06:17:18)
[2020-07-24] MEDS: ZOSYN VIAL 4.5 GRAMS 4.5 G in NS 100 ML IV + SPIKE MINIBAG* 100 ML IV SCH ×2 (06:39→15:26)
[2020-07-24 06:48] LABS: BASOPHILS % (AUTO) 0.1 % (0.2-1.0); HEMATOCRIT 35.5 % (36.0-47.0); HEMOGLOBIN 11.8 g/dL (12.0-16.0); LYMPHOCYTES # (AUTO) 0.7 X10^3/uL (1.3-2.9); LYMPHOCYTES % (AUTO) 5.3 % (21.0-51.0); MEAN CORPUSCULAR HEMOGLOBIN 29.6 pg (27.0-34.0); MEAN CORPUSCULAR HGB CONC 33.3 g/dL (33.0-35.0); MEAN PLATELET VOLUME 10.4 fL (7.4-11.0); MONOCYTES # (AUTO) 0.4 x10^3/uL (0.3-0.8); MONOCYTES % (AUTO) 2.9 % (0.0-13.0); NEUTROPHILS # (AUTO) 11.8 x10^3/uL (2.2-4.8); NEUTROPHILS % (AUTO) 91.7 % (42.0-75.0); PLATELET COUNT 212 X10^3/uL (150.0-450.0); RED BLOOD COUNT 3.99 X10^6/uL (3.5-5.4); RED CELL DISTRIBUTION WIDTH 14.5 % (11.6-16.5); WHITE BLOOD COUNT 12.8 X10^3/uL (3.6-10.0)
[2020-07-24 07:13] LABS: ALANINE AMINOTRANSFERASE 57 Units/L (12-78); ALBUMIN 1.3 g/dL (3.4-5.0); ALKALINE PHOSPHATASE 65 Units/L (46-116); ASPARTATE AMINO TRANSFERASE 46 Units/L (15-37); BLOOD UREA NITROGEN 35 mg/dL (7-18); CALCIUM 7.9 mg/dL (8.5-10.1); CARBON DIOXIDE 25.1 mmol/L (21-32); CHLORIDE 112 mmol/L (98-107); COR CA(FOR HYPOALB) 10.1 mg/dL (8.5-10.1); COR NA(FOR HYPERGLY) 147 mmol/L (136-145); CREATININE 1.17 mg/dL (0.55-1.02); SODIUM 146 mmol/L (136-145); TOTAL PROTEIN 4.8 g/dL (6.4-8.2); eGFR NON BLACK RACES 52 (>60)
[2020-07-24 07:17] LABS: PLATELET MORPHOLOGY COMMENT NORMAL (NORMAL)
[2020-07-24] MEDS: LACRI-LUBE S.O.P. AFFEYE SCH (08:19)
[2020-07-24] MEDS: LOVENOX INJ 30 MG SYR SC SCH (08:38)
[2020-07-24] MEDS: NICOTINE PATCH TD SCH (08:39)
[2020-07-24] MEDS: PROTONIX INJ 40 MG VIAL IVP SCH (08:41)
[2020-07-24] MEDS: SOLU-Medrol 125 MG VIAL IVP SCH (08:41)
[2020-07-24] MEDS: PULMICORT NEB TX 0.5 MG NEB SCH (08:50)
[2020-07-24] MEDS: XOPENEX 1.25 MG/3 ML NEBULE NEB SCH ×2 (08:50→13:12)
[2020-07-24] MEDS ORDERED: D5W 1000 ML IV 1,000 ML IV SCH (09:00)
[2020-07-24] MEDS: BROVANA IN SCH (09:25)
[2020-07-24] MEDS: ZITHROMAX INJ 500 MG VIAL 500 MG in D5W 250 ML IV 250 ML IV SCH (09:29)
[2020-07-24] MEDS: ZYVOX 600MG IV 600 MG/300 ML BAG IV SCH (11:35)
[2020-07-24] MEDS: K-RIDER 10 MEQ/NS 100 ML 10 MEQ/100 ML BAG IV PRN ×2 (13:01→14:08)
[2020-07-24] MEDS ORDERED: PHARMACY COMMENT IV NR (13:30)
[2020-07-24] MEDS ORDERED: XOPENEX 1.25 MG/3 ML NEBULE NEB ONE (16:49)
[2020-07-24] MEDS ORDERED: MUCOMYST (RESPIRATORY USE ONLY) NEB SCH (18:00)
[2020-07-24] MEDS ORDERED: XOPENEX 1.25 MG/3 ML NEBULE NEB SCH (18:00)
[2020-07-24] MEDS: NORCURON INJ 10 MG VIAL 50 MG in NS 50 ML IV 50 ML IV PRN (18:19)
[2020-07-24 22:46] VITALS: BP 123/83
[2020-07-25 12:51] LABS: ZINC PLASMA 26.4 ug/dL (60.0-120.0)
[2020-07-26 07:24] LABS: ACID FAST STAIN NEGATIVE
[2020-07-26 07:25] LABS: ACID FAST STAIN NEGATIVE
[2020-07-26 07:25] LABS: ACID FAST STAIN NEGATIVE
== END 2020-07-24 21:15 | disposition short-term general hospital (02) | DRG 208 ==
LOC: ER 20:27 → MED/SURG 07-20 01:24
PROVIDERS: ADMIT Internal Medicine; ATTEND Internal Medicine
DX: R07.89 Other chest pain; J44.9 Chronic obstructive pulmonary disease, unspecified; Z20.828 Contact with and (suspected) exposure to other viral communicable diseases; J15.5 Pneumonia due to Escherichia coli; G43.809 Other migraine, not intractable, without status migrainosus; R06.03 Acute respiratory distress; R68.89 Other general symptoms and signs; R06.02 Shortness of breath; I87.2 Venous insufficiency (chronic) (peripheral); E86.0 Dehydration; R79.82 Elevated C-reactive protein (CRP)